=== PATIENT | female | born 1960 | race Caucasian/White ===

== ENCOUNTER 2021-03-16 11:39 | Outpatient (CLI) | payer OTHER | END 2021-03-16 11:40 | disposition home or self-care (01) | LOC: BICMAMMO 11:39 | PROVIDERS: ATTEND Nurse Practitioner Family | DX: Z12.31 Encounter for screening mammogram for malignant neoplasm of breast (principal); Z85.850 Personal history of malignant neoplasm of thyroid; Z85.51 Personal history of malignant neoplasm of bladder; Z80.3 Family history of malignant neoplasm of breast | CPT/HCPCS: 77063; 77067 ==

== ENCOUNTER 2022-12-27 08:19 | Outpatient (CLI) | payer OTHER | END 2022-12-27 08:20 | disposition home or self-care (01) | LOC: BICMAMMO 08:19 | PROVIDERS: ATTEND Nurse Practitioner Family | DX: Z12.31 Encounter for screening mammogram for malignant neoplasm of breast (principal); Z80.3 Family history of malignant neoplasm of breast; Z85.850 Personal history of malignant neoplasm of thyroid; Z85.51 Personal history of malignant neoplasm of bladder | CPT/HCPCS: 77063; 77067 ==

== ENCOUNTER 2023-12-06 12:46 | Outpatient (CLI) | payer OTHER | END 2023-12-06 12:47 | disposition home or self-care (01) | LOC: BICCT 12:46 | PROVIDERS: ATTEND Specialist | DX: R09.81 Nasal congestion (principal); J34.89 Other specified disorders of nose and nasal sinuses; M26.643 Arthritis of bilateral temporomandibular joint ==